=== PATIENT | male | born 1955 | race Caucasian/White ===

== ENCOUNTER → 2018-02-09 | Outpatient (CLI) | payer OTHER | END | disposition home or self-care (01) | LOC: RAD 14:24 | DX: M25.571 Pain in right ankle and joints of right foot (principal) ==

== ENCOUNTER 2018-10-04 09:20 | Outpatient (CLI) | payer OTHER | END 2018-10-04 15:50 | disposition home or self-care (01) | LOC: LAB 09:20 | DX: E03.8 Other specified hypothyroidism (principal) ==

== ENCOUNTER 2018-10-05 08:47 | Outpatient (CLI) | payer OTHER | END 2018-10-05 18:13 | disposition home or self-care (01) | LOC: LAB 08:47 | DX: E11.9 Type 2 diabetes mellitus without complications (principal) ==

== ENCOUNTER 2019-01-20 08:32 | Outpatient (CLI) | payer OTHER | END 2019-01-20 08:58 | disposition home or self-care (01) | LOC: LAB 08:32 | DX: E11.41 Type 2 diabetes mellitus with diabetic mononeuropathy (principal) ==

== ENCOUNTER 2019-02-02 11:44 | Outpatient (CLI) | payer OTHER | END 2019-02-02 11:49 | disposition home or self-care (01) | LOC: LAB 11:44 | DX: Z11.59 Encounter for screening for other viral diseases (principal) ==

== ENCOUNTER 2019-04-15 13:45 | Outpatient (CLI) | payer OTHER | END 2019-04-15 13:46 | disposition home or self-care (01) | LOC: RAD 13:45 | DX: M79.672 Pain in left foot (principal) ==

== ENCOUNTER → 2019-09-02 09:24 | Outpatient (CLI) | payer OTHER | END | disposition home or self-care (01) | LOC: LAB 09:24 | DX: E29.1 Testicular hypofunction (principal); R31.29 Other microscopic hematuria; M06.89 Other specified rheumatoid arthritis, multiple sites; M32.19 Other organ or system involvement in systemic lupus erythematosus; E03.8 Other specified hypothyroidism; M33.12 Other dermatomyositis with myopathy; I10 Essential (primary) hypertension; E11.9 Type 2 diabetes mellitus without complications; M81.0 Age-related osteoporosis without current pathological fracture; I25.10 Atherosclerotic heart disease of native coronary artery without angina pectoris ==

== ENCOUNTER 2019-10-24 08:05 | Outpatient (CLI) | payer OTHER | END 2019-10-24 15:00 | disposition home or self-care (01) | LOC: LAB 08:05 | DX: E13.69 Other specified diabetes mellitus with other specified complication (principal); N40.0 Benign prostatic hyperplasia without lower urinary tract symptoms ==

== ENCOUNTER → 2020-10-22 09:11 | Outpatient (CLI) | payer OTHER | END | disposition home or self-care (01) | LOC: LAB 09:11 | PROVIDERS: ATTEND Anesthesiology | DX: E03.8 Other specified hypothyroidism (principal) ==

== ENCOUNTER 2021-09-16 11:58 | Outpatient (CLI) | payer OTHER | END 2021-09-16 12:00 | disposition home or self-care (01) | LOC: MRI 11:58 | PROVIDERS: ATTEND Anesthesiology | DX: M51.37 Other intervertebral disc degeneration, lumbosacral region (principal); M54.59 Other low back pain | CPT/HCPCS: 72148 ==

== ENCOUNTER 2021-09-30 11:09 | Outpatient (CLI) | payer OTHER | END 2021-09-30 15:00 | disposition home or self-care (01) | LOC: LAB 11:09 | PROVIDERS: ATTEND Anesthesiology | DX: K75.89 Other specified inflammatory liver diseases (principal) ==

== ENCOUNTER 2022-02-05 08:58 | Outpatient (CLI) | payer OTHER | END 2022-02-05 09:13 | disposition home or self-care (01) | LOC: LAB 08:58 | PROVIDERS: ATTEND Anesthesiology | DX: Z02.79 Encounter for issue of other medical certificate (principal) ==

== ENCOUNTER 2022-03-04 10:20 | Outpatient (CLI) | payer OTHER | END 2022-03-04 10:35 | disposition home or self-care (01) | LOC: PPH VACUNA 10:20 | PROVIDERS: ATTEND Emergency Medicine Pediatric Emergency Medicine | DX: Z23 Encounter for immunization (principal) ==

== ENCOUNTER 2022-07-29 08:00 | Outpatient (CLI) | payer OTHER | END 2022-07-29 08:05 | disposition home or self-care (01) | LOC: PPH VACUNA 08:00 | PROVIDERS: ATTEND Emergency Medicine Pediatric Emergency Medicine | DX: Z23 Encounter for immunization (principal) ==

== ENCOUNTER 2022-08-26 13:59 | Outpatient (CLI) | payer OTHER | END 2022-08-26 14:09 | disposition home or self-care (01) | LOC: PPH VACUNA 13:59 | PROVIDERS: ATTEND Emergency Medicine Pediatric Emergency Medicine | DX: Z23 Encounter for immunization (principal) ==

== ENCOUNTER → 2022-10-08 09:08 | Outpatient (CLI) | payer OTHER | END | disposition home or self-care (01) | LOC: LAB 09:08 | PROVIDERS: ATTEND Anesthesiology | DX: D64.9 Anemia, unspecified (principal); R10.9 Unspecified abdominal pain; E11.9 Type 2 diabetes mellitus without complications; R80.9 Proteinuria, unspecified; N39.0 Urinary tract infection, site not specified; E55.9 Vitamin D deficiency, unspecified; Z12.5 Encounter for screening for malignant neoplasm of prostate; N40.0 Benign prostatic hyperplasia without lower urinary tract symptoms; E03.9 Hypothyroidism, unspecified; E78.5 Hyperlipidemia, unspecified; I10 Essential (primary) hypertension ==

== ENCOUNTER 2022-10-15 08:11 | Outpatient (CLI) | payer OTHER | END 2022-10-15 08:12 | disposition home or self-care (01) | LOC: LAB 08:11 | PROVIDERS: ATTEND Anesthesiology Pain Medicine | DX: I10 Essential (primary) hypertension (principal) ==

== ENCOUNTER 2022-11-13 13:12 | Outpatient (CLI) | payer OTHER | END 2022-11-13 13:18 | disposition home or self-care (01) | LOC: SONOGRAMA 13:12 | PROVIDERS: ATTEND Anesthesiology | DX: R31.1 Benign essential microscopic hematuria (principal) ==

== ENCOUNTER 2022-11-14 08:32 | Outpatient (CLI) | payer OTHER | END 2022-11-14 09:18 | disposition home or self-care (01) | LOC: MRI 08:32 | PROVIDERS: ATTEND Urology | DX: R31.1 Benign essential microscopic hematuria (principal) ==

== ENCOUNTER → 2022-11-25 08:02 | Outpatient (CLI) | payer OTHER | END | disposition home or self-care (01) | LOC: LAB 08:02 | PROVIDERS: ATTEND Anesthesiology | DX: R94.4 Abnormal results of kidney function studies (principal) ==

== ENCOUNTER 2022-12-16 10:40 | Outpatient (CLI) | payer OTHER | END 2022-12-16 10:41 | disposition home or self-care (01) | LOC: LAB 10:40 | PROVIDERS: ATTEND Anesthesiology | DX: Z01.812 Encounter for preprocedural laboratory examination (principal) ==

== ENCOUNTER 2023-01-02 07:13 | Outpatient (CLI) | payer OTHER | END 2023-01-02 07:21 | disposition home or self-care (01) | LOC: NUCLEAR 07:13 | PROVIDERS: ATTEND Urology | DX: I25.10 Atherosclerotic heart disease of native coronary artery without angina pectoris (principal) | CPT/HCPCS: 78452; 93017; 93306; A9500; J0153 ==

== ENCOUNTER 2023-01-06 10:29 | Outpatient (CLI) | payer OTHER | END 2023-01-06 10:32 | disposition home or self-care (01) | LOC: NUCLEAR 10:29 | PROVIDERS: ATTEND Urology | DX: N13.1 Hydronephrosis with ureteral stricture, not elsewhere classified (principal); N31.1 Reflex neuropathic bladder, not elsewhere classified ==

== ENCOUNTER 2023-01-15 08:52 | Outpatient (CLI) | payer OTHER | END 2023-01-15 09:19 | disposition home or self-care (01) | LOC: LAB 08:52 | PROVIDERS: ATTEND Urology | DX: R31.1 Benign essential microscopic hematuria (principal) ==

== ENCOUNTER 2023-02-25 08:35 | Outpatient (CLI) | payer OTHER | END 2023-02-25 15:14 | disposition home or self-care (01) | LOC: LAB 08:35 | DX: N28.89 Other specified disorders of kidney and ureter (principal); N39.0 Urinary tract infection, site not specified ==

== ENCOUNTER 2023-03-20 15:13 | Outpatient (CLI) | payer OTHER | END 2023-03-20 15:15 | disposition home or self-care (01) | LOC: LAB 15:13 | PROVIDERS: ATTEND Anesthesiology | DX: Z03.818 Encounter for observation for suspected exposure to other biological agents ruled out (principal) ==

== ENCOUNTER → 2023-03-23 | Outpatient (CLI) | payer OTHER | END | disposition home or self-care (01) | LOC: LAB 15:26 | DX: Z03.818 Encounter for observation for suspected exposure to other biological agents ruled out (principal) ==

== ENCOUNTER 2023-08-05 09:56 | Outpatient (CLI) | payer OTHER | END 2023-08-05 10:07 | disposition home or self-care (01) | LOC: LAB 09:56 | DX: C64.2 Malignant neoplasm of left kidney, except renal pelvis (principal) ==

== ENCOUNTER 2023-08-05 11:07 | Outpatient (CLI) | payer OTHER | END 2023-08-05 11:16 | disposition home or self-care (01) | LOC: TOM 11:07 | PROVIDERS: ATTEND Urology | DX: C64.2 Malignant neoplasm of left kidney, except renal pelvis (principal) | CPT/HCPCS: 74177; Q9965 ==

== ENCOUNTER 2023-10-06 13:52 | Outpatient (CLI) | payer OTHER | END 2023-10-06 14:18 | disposition home or self-care (01) | LOC: LAB 13:52 | DX: Z11.3 Encounter for screening for infections with a predominantly sexual mode of transmission (principal) ==

== ENCOUNTER 2023-11-27 07:21 | Outpatient (CLI) | payer OTHER ==
[2023-11-27 08:48] LABS: HEMATOCRIT 35.9 % (39.0-48.0); HEMOGLOBIN 12.3 g/dL (13-16.00); MEAN CELL VOLUME 92.3 fL (80.0-100.00); MEAN CORPUSCULAR HEMOGLOBIN 31.5 pg (27.00-32.0); MEAN CORPUSCULAR HGB CONC 34.1 g/dl (32.0-36.0); PLATELET COUNT 266 K/uL (150-450); RED BLOOD COUNT 3.89 M/uL (4.00-6.00); RED CELL DISTRIBUTION WIDTH 14.4 % (11.5-14.5)
[2023-11-27 08:48] LABS: PH,URINE 5.5 (5.0-8.0); URINE APPEARANCE Clear; URINE BILIRRUBIN Negative (NEGATIVE); URINE BLOOD Negative; URINE COLOR Dark Yellow; URINE GLUCOSE Negative (NEGATIVE); URINE LEUKOCYTE Negative; URINE NITRATE Negative; URINE PROTEIN Negative (NEGATIVE); URINE UROBILINOGEN 0.2 E.U./dl
[2023-11-27 08:51] LABS: URINE BACTERIA 86.8 uL (0.0-1933); URINE EPITHELIAL CELLS 3.8 uL (0.0-38.8); URINE WBC 2.7 uL (0.0-23.2)
[2023-11-27 08:53] LABS: URINE RBC 0.7 uL (0.0-20.8)
[2023-11-27 09:24] LABS: ALBUMIN 3.9 gm/dL (3.4-5.0); BILIRUBIN TOTAL 0.57 mg/dL (0.3-1.2); CHOL HDL RATIO 2.6 (0-5.0); CREATININE SERUM 1.28 mg/dL (0.70-1.30); GFR 56.23; POTASSIUM 4.42 mEq/L (3.5-5.1); PROSTATIC SPECIFIC ANTIGEN 0.233 NG/ML (0.010-4.00); T4 TOTAL 10.92 UG/DL (4.5-12.1); TOTAL PROTEIN 6.9 gm/dL (6.4-8.2); TSH 1.5 uIU/mL (0.358-3.74)
== END 2023-11-27 07:24 | disposition home or self-care (01) ==
LOC: LAB 07:21
PROVIDERS: ATTEND Anesthesiology
DX: D64.9 Anemia, unspecified (principal); R10.9 Unspecified abdominal pain; N39.0 Urinary tract infection, site not specified; N40.0 Benign prostatic hyperplasia without lower urinary tract symptoms; E03.9 Hypothyroidism, unspecified; E78.5 Hyperlipidemia, unspecified; R73.09 Other abnormal glucose

== ENCOUNTER 2024-05-23 06:39 | Outpatient (CLI) | payer OTHER ==
[2024-05-23 07:17] LABS: HEMATOCRIT 33.3 % (39.0-48.0); HEMOGLOBIN 11.5 g/dL (13-16.00); MEAN CELL VOLUME 92.6 fL (80.0-100.00); MEAN CORPUSCULAR HEMOGLOBIN 31.9 pg (27.00-32.0); MEAN CORPUSCULAR HGB CONC 34.5 g/dl (32.0-36.0); PLATELET COUNT 300 K/uL (150-450); RED BLOOD COUNT 3.59 M/uL (4.00-6.00); RED CELL DISTRIBUTION WIDTH 13.5 % (11.5-14.5)
[2024-05-23 08:03] LABS: ALBUMIN 3.8 gm/dL (3.4-5.0); BILIRUBIN TOTAL 0.57 mg/dL (0.3-1.2); CALCIUM 8.7 mg/dL (8.5-10.1); CREATININE SERUM 1.5 mg/dL (0.70-1.30); GFR 46.68; POTASSIUM 5.25 mEq/L (3.5-5.1); TOTAL PROTEIN 6.8 gm/dL (6.4-8.2)
== END 2024-05-23 06:44 | disposition home or self-care (01) ==
LOC: LAB 06:39
PROVIDERS: ATTEND Urology
DX: C64.2 Malignant neoplasm of left kidney, except renal pelvis (principal)

== ENCOUNTER → 2024-05-24 06:40 | Outpatient (CLI) | payer OTHER ==
[2024-05-24 07:12] LABS: HEMOGLOBIN 11.1 g/dL (13-16.00); MEAN CELL VOLUME 91.9 fL (80.0-100.00); MEAN CORPUSCULAR HEMOGLOBIN 31.9 pg (27.00-32.0); MEAN CORPUSCULAR HGB CONC 34.8 g/dl (32.0-36.0); PLATELET COUNT 282 K/uL (150-450); RED BLOOD COUNT 3.49 M/uL (4.00-6.00); RED CELL DISTRIBUTION WIDTH 13.4 % (11.5-14.5)
[2024-05-24 07:53] LABS: INR 1.04; PARTIAL THROMBOPLASTIN TIME 30.5 SECONDS (22.0-34.0); PROTHROMBIN TIME 10.9 SECONDS (9.0-11.5)
[2024-05-24 08:16] LABS: ALBUMIN 3.8 gm/dL (3.4-5.0); BILIRUBIN TOTAL 0.59 mg/dL (0.3-1.2); CALCIUM 8.4 mg/dL (8.5-10.1); CREATININE SERUM 1.69 mg/dL (0.70-1.30); GFR 40.68; GLOBULINA 3.1 G/DL (2.4-3.5); POTASSIUM 4.4 mEq/L (3.5-5.1); PROSTATIC SPECIFIC ANTIGEN 0.217 NG/ML (0.010-4.00); TOTAL PROTEIN 6.9 gm/dL (6.4-8.2)
== END | disposition home or self-care (01) ==
LOC: LAB 06:40
PROVIDERS: ATTEND Anesthesiology
DX: N40.0 Benign prostatic hyperplasia without lower urinary tract symptoms (principal); Z12.5 Encounter for screening for malignant neoplasm of prostate; R10.9 Unspecified abdominal pain; E11.9 Type 2 diabetes mellitus without complications; D64.9 Anemia, unspecified; Z79.01 Long term (current) use of anticoagulants

== ENCOUNTER 2024-05-25 09:06 | Outpatient (CLI) | payer OTHER | END 2024-05-25 09:14 | disposition home or self-care (01) | LOC: MRI 09:06 | PROVIDERS: ATTEND Urology | DX: C64.2 Malignant neoplasm of left kidney, except renal pelvis (principal) | CPT/HCPCS: 72197; 74183; Q9965 ==

== ENCOUNTER 2024-12-26 08:03 | Outpatient (CLI) | payer OTHER ==
[2024-12-26 08:44] LABS: HEMATOCRIT 33.1 % (39.0-48.0); HEMOGLOBIN 11.2 g/dL (13-16.00); MEAN CELL VOLUME 94.4 fL (80.0-100.00); MEAN CORPUSCULAR HGB CONC 33.9 g/dl (32.0-36.0); PLATELET COUNT 281 K/uL (150-450); RED CELL DISTRIBUTION WIDTH 13.4 % (11.5-14.5)
[2024-12-26 09:30] LABS: URINE APPEARANCE Clear; URINE BILIRRUBIN Negative (NEGATIVE); URINE BLOOD Negative; URINE COLOR Yellow; URINE GLUCOSE Negative (NEGATIVE); URINE KETONE Negative (NEGATIVE); URINE LEUKOCYTE Negative; URINE NITRATE Negative; URINE PROTEIN Negative (NEGATIVE); URINE UROBILINOGEN 0.2 E.U./dl
[2024-12-26 09:35] LABS: URINE BACTERIA 15.8 uL (0.0-1933); URINE EPITHELIAL CELLS 4.7 uL (0.0-38.8)
[2024-12-26 09:38] LABS: URINE RBC 1.3 uL (0.0-20.8); URINE WBC 1.7 uL (0.0-23.2)
[2024-12-26 10:18] LABS: ALBUMIN 3.9 gm/dL (3.4-5.0); BILIRUBIN TOTAL 0.54 mg/dL (0.3-1.2); CALCIUM 9.2 mg/dL (8.5-10.1); CHOL HDL RATIO 2.8 (0-5.0); CREATININE SERUM 1.47 mg/dL (0.70-1.30); FREE TRIODOTIRONINE 1.86 pg/ml (2.18-3.98); GFR 47.64; GLOBULINA 2.7 G/DL (2.4-3.5); MAGNESIUM 1.7 mg/dL (1.8-2.4); POTASSIUM 4.49 mEq/L (3.5-5.1); PROSTATIC SPECIFIC ANTIGEN 0.245 NG/ML (0.010-4.00); T4 FREE 1.12 NG/ML (0.76-1.46); TOTAL PROTEIN 6.6 gm/dL (6.4-8.2); TSH 2.89 uIU/mL (0.358-3.74)
== END 2024-12-26 08:10 | disposition home or self-care (01) ==
LOC: EDBD 08:03 → LAB 08:03
PROVIDERS: ATTEND Anesthesiology
DX: D64.9 Anemia, unspecified (principal); R10.9 Unspecified abdominal pain; E11.9 Type 2 diabetes mellitus without complications; R80.9 Proteinuria, unspecified; E55.9 Vitamin D deficiency, unspecified; Z12.5 Encounter for screening for malignant neoplasm of prostate; E03.9 Hypothyroidism, unspecified; E78.5 Hyperlipidemia, unspecified; I10 Essential (primary) hypertension

== ENCOUNTER 2025-05-25 07:52 | Outpatient (CLI) | payer OTHER ==
[2025-05-25 08:38] LABS: BASO % 0.4 % (0.1-1.2); EOS # 0.09 (0.04-0.54); EOS % 1.2 % (0.7-7.0); LYMPH # 1.29 (1.18-3.74); LYMPH % 17.4 % (19.3-53.1); MEAN PLATELET VOLUME 10.40 fl (9.4-12.4); MONO # 0.52 (0.24-0.82); MONO % 7.0 % (4.7-12.5); NEUT # 5.46 (1.56-6.13); NEUT % 73.7 % (34.0-71.1); RED CELL DISTRIBUTION WIDTH 13.2 % (11.6-14.4)
[2025-05-25 09:04] LABS: ALT/SGPT 18.0 U/L (12-78); AST/SGOT 10.0 U/L (15-37); BILIRUBIN TOTAL 0.38 mg/dL (0.3-1.2); BUN CREA RATIO 25.0 (7.0-25.0); CREATININE SERUM 1.54 mg/dL (0.70-1.30); GFR 45.15; GLOBULINA 2.8 G/DL (2.4-3.5); GLUCOSE FASTING 109.0 mg/dL (65-100); OSMOLALITY SERUM 289.0 MOSM/KG (275-295)
== END 2025-05-25 07:55 | disposition home or self-care (01) ==
LOC: LAB 07:52
PROVIDERS: ATTEND Urology
DX: C64.2 Malignant neoplasm of left kidney, except renal pelvis (principal)

== ENCOUNTER 2025-05-25 08:12 | Outpatient (CLI) | payer OTHER | END 2025-05-25 08:16 | disposition home or self-care (01) | LOC: MRI 08:12 | PROVIDERS: ATTEND Urology | DX: C64.2 Malignant neoplasm of left kidney, except renal pelvis (principal); M48.061 Spinal stenosis, lumbar region without neurogenic claudication | CPT/HCPCS: 71046; 72148; 72197; 74183; Q9965 ==

== ENCOUNTER → 2025-07-20 06:23 | Outpatient (CLI) | payer OTHER ==
[2025-07-20 06:57] LABS: BASO % 0.5 % (0.1-1.2); EOS # 0.12 (0.04-0.54); EOS % 1.9 % (0.7-7.0); LYMPH # 1.91 (1.18-3.74); LYMPH % 30.2 % (19.3-53.1); MEAN PLATELET VOLUME 10.20 fl (9.4-12.4); MONO # 0.75 (0.24-0.82); MONO % 11.9 % (4.7-12.5); NEUT # 3.49 (1.56-6.13); NEUT % 55.2 % (34.0-71.1); RED CELL DISTRIBUTION WIDTH 12.6 % (11.6-14.4)
[2025-07-20 07:37] LABS: BUN CREA RATIO 28.0 (7.0-25.0); CHOL HDL RATIO 1.3 (0-5.0); CREATININE SERUM 1.26 mg/dL (0.70-1.30); GFR 56.91; GLUCOSE FASTING 90.0 mg/dL (65-100); HDL 87.0 mg/dl (40-60); LDL 17.0 mg/dl (0-130); OSMOLALITY SERUM 292.0 MOSM/KG (275-295); VLDL 12.0 (0-39)
[2025-07-20 09:27] LABS: URINE APPEARANCE Clear; URINE BILIRRUBIN Negative (NEGATIVE); URINE BLOOD Negative; URINE COLOR Dark Yellow; URINE GLUCOSE Negative (NEGATIVE); URINE KETONE Negative (NEGATIVE); URINE LEUKOCYTE Negative; URINE NITRATE Negative; URINE PROTEIN Negative (NEGATIVE); URINE UROBILINOGEN 0.2 E.U./dl
[2025-07-20 09:30] LABS: URINE BACTERIA 64.7 uL (0.0-1933); URINE EPITHELIAL CELLS 9.5 uL (0.0-38.8); URINE RBC 79.4 uL (0.0-20.8); URINE WBC 6.3 uL (0.0-23.2)
[2025-07-20 09:40] LABS: URINE CAST 0.29 uL (0.0-1.40)
== END | disposition home or self-care (01) ==
LOC: LAB 06:23
DX: D64.9 Anemia, unspecified (principal); I10 Essential (primary) hypertension; Z85.528 Personal history of other malignant neoplasm of kidney; E11.65 Type 2 diabetes mellitus with hyperglycemia; R80.1 Persistent proteinuria, unspecified; N39.0 Urinary tract infection, site not specified; R80.9 Proteinuria, unspecified; N25.81 Secondary hyperparathyroidism of renal origin; E55.9 Vitamin D deficiency, unspecified; E78.5 Hyperlipidemia, unspecified; E79.0 Hyperuricemia without signs of inflammatory arthritis and tophaceous disease